=== PATIENT | female | born 1930 | race Asian ===

== ENCOUNTER → 2017-01-25 | Outpatient (CLI) | payer OTHER ==
[~2017-01-25] MED LIST: CALC500T62 PO; CIPR-278 PO; CLOP75 PO; MULT-1238 PO; PITA2TAB2 PO; VALS160T2 PO
== END | disposition home or self-care (01) ==
LOC: RADPV 09:36
PROVIDERS: ATTEND Internal Medicine
DX: K73.9 Chronic hepatitis, unspecified (principal); R60.9 Edema, unspecified; R16.1 Splenomegaly, not elsewhere classified; N28.1 Cyst of kidney, acquired; K76.89 Other specified diseases of liver
CPT/HCPCS: 76700; 93970

== ENCOUNTER 2017-03-11 09:39 | Inpatient (IN) | payer OTHER ==
[~2017-03-11] VITALS: Ht 154.9 cm; Wt 55.5 kg
[2017-03-11] MEDS ORDERED: SODIUM CHLORIDE 0.9% 1,000 ML IV ONE ×2 (10:15→11:30)
[2017-03-11 10:30] LABS: BASOPHILS % (AUTO) 0.5 % (0.0-2.0); HEMATOCRIT 35.7 % (36-46); HEMOGLOBIN 11.2 g/dL (12.0-16.0); LYMPHOCYTES # (AUTO) 1.7 K/uL (1.0-4.8); LYMPHOCYTES % (AUTO) 17.9 % (22.0-44.0); MEAN CORPUSCULAR HEMOGLOBIN 25.2 pg (26.0-34.0); MEAN CORPUSCULAR HGB CONC 31.3 G/dL (31.0-37.0); MEAN CORPUSCULAR VOLUME 80 fL (80-100); NEUTROPHILS # (AUTO) 6.7 K/uL (1.8-7.7); NEUTROPHILS % (AUTO) 68.6 % (40.0-70.0); PLATELET COUNT (AUTO) 158 K/uL (150-450); RED BLOOD CELL COUNT(AUTO) 4.44 MIL/uL (4.00-5.20); RED CELL DISTRIBUTION WIDTH 17.4 % (11.5-14.5); WHITE BLOOD COUNT (AUTO) 9.7 K/uL (4.5-11.0)
[2017-03-11 10:40] LABS: PROTHROMBIN TIME 10.9 SEC (9.4-11.6)
[2017-03-11 10:41] LABS: CALCIUM, TOTAL 8.8 mg/dL (8.8-10.5); CREATININE 1.19 mg/dL (0.60-1.30); POTASSIUM 4.1 mmol/L (3.5-5.1)
[2017-03-11 10:47] LABS: ALBUMIN 3.3 g/dL (3.4-5.0); BILIRUBIN,TOTAL 0.4 mg/dL (0.1-1.0); TOTAL PROTEIN, SERUM 7.5 g/dL (6.4-8.2)
[2017-03-11] MEDS ORDERED: ONDANSETRON HCL 4 MG/2 ML VIAL IVP PRN (11:30)
[2017-03-11] MEDS ORDERED: 0.9% SODIUM CHLORIDE 10 ML SYRINGE IVP PRN (11:30)
[2017-03-11] MEDS ORDERED: ACETAMINOPHEN 325 MG TABLET PO PRN (11:30)
[2017-03-11 11:54] LABS: APPEARANCE,URINE CLEAR (CLEAR); GLUCOSE, URINE (UA) NEGATIVE (NEGATIVE); KETONES,URINE NEGATIVE (NEGATIVE); LEUKOCYTE ESTERASE ,URINE NEGATIVE (NEGATIVE); OCCULT BLOOD,URINE NEGATIVE (NEGATIVE); PROTEIN,URINE NEGATIVE (NEGATIVE)
[2017-03-11 11:55] LABS: ADD UA MICROSCOPIC NO
[2017-03-11 17:30] VITALS: BP 175/103
[2017-03-11 17:46] VITALS: BP 154/89
[2017-03-11] MEDS: ASPIRIN 81 MG CHEWABLE TABLET PO SCH (18:58)
[2017-03-11 19:48] VITALS: BP 151/95
[2017-03-11 20:14] LABS: HEMOGLOBIN A1C 5.5 % (4.5-6.2)
[2017-03-11 20:31] LABS: THYROID STIMULATING HORMONE 2.22 uIU/mL (0.36-3.74)
[2017-03-11 23:58] VITALS: BP 151/69
[2017-03-12 03:25] VITALS: BP 164/87
[2017-03-12 07:42] VITALS: BP 147/95
[2017-03-12] MEDS ORDERED: [UNRECOGNIZED DRUG - OTHER] PO SCH (09:30)
[2017-03-12] MEDS ORDERED: PITAVASTATIN CALCIUM 2 MG PO SCH (09:30)
[2017-03-12 10:07] LABS: VITAMIN B12 LEVEL 1333 pg/mL (211-911)
[2017-03-12] MEDS: CLOPIDOGREL BISULFATE 75 MG TABLET PO SCH (10:09)
[2017-03-12] MEDS: ASPIRIN 81 MG CHEWABLE TABLET PO SCH (10:09)
[2017-03-12] MEDS: VALSARTAN 160 MG TABLET PO SCH (10:10)
[2017-03-12] MEDS: MULTIVITAMINS, THERAPEUTIC TABLET PO SCH (10:10)
[2017-03-12 11:26] VITALS: BP 146/84
[2017-03-12] MEDS: CALCIUM OYSTER SHELL 500 MG TABLET PO SCH ×2 (12:27→20:12)
[2017-03-12 15:49] VITALS: BP 148/86
[2017-03-12 19:36] VITALS: BP 150/67
[2017-03-13 00:18] VITALS: BP 145/74
[2017-03-13 04:44] VITALS: BP 141/63
[2017-03-13 08:00] VITALS: BP 143/76
[2017-03-13] MEDS: VALSARTAN 160 MG TABLET PO SCH (08:10)
[2017-03-13] MEDS: ASPIRIN 81 MG CHEWABLE TABLET PO SCH (08:10)
[2017-03-13] MEDS: CLOPIDOGREL BISULFATE 75 MG TABLET PO SCH (08:11)
[2017-03-13] MEDS: MULTIVITAMINS, THERAPEUTIC TABLET PO SCH (08:11)
[2017-03-13] MEDS: CALCIUM OYSTER SHELL 500 MG TABLET PO SCH ×2 (08:13→22:03)
[2017-03-13 12:00] VITALS: BP 123/61
[2017-03-13 16:03] VITALS: BP 124/67
[2017-03-13 19:49] VITALS: BP 146/71
[2017-03-14 00:14] VITALS: BP 135/68
[2017-03-14 04:30] VITALS: BP 125/52
[2017-03-14 07:14] VITALS: BP 121/89
[2017-03-14] MEDS: MULTIVITAMINS, THERAPEUTIC TABLET PO SCH (08:18)
[2017-03-14] MEDS: CALCIUM OYSTER SHELL 500 MG TABLET PO SCH (08:18)
[2017-03-14] MEDS: ASPIRIN 81 MG CHEWABLE TABLET PO SCH (08:18)
[2017-03-14] MEDS: CLOPIDOGREL BISULFATE 75 MG TABLET PO SCH (08:18)
[2017-03-14] MEDS: VALSARTAN 160 MG TABLET PO SCH (08:18)
[2017-03-14 10:46] VITALS: BP 114/57
[2017-03-14 16:19] VITALS: BP 106/52
== END 2017-03-14 17:55 | disposition home or self-care (01) | DRG 74 ==
LOC: EMS 09:42 → 5S 16:05
PROVIDERS: ADMIT Family Medicine; ATTEND Family Medicine
DX: G90.9 Disorder of the autonomic nervous system, unspecified (principal); J98.11 Atelectasis; R56.9 Unspecified convulsions; J44.9 Chronic obstructive pulmonary disease, unspecified; F03.90 Unspecified dementia, unspecified severity, without behavioral disturbance, psychotic disturbance, mood disturbance, and anxiety; I10 Essential (primary) hypertension; M19.90 Unspecified osteoarthritis, unspecified site; E78.5 Hyperlipidemia, unspecified; I67.2 Cerebral atherosclerosis; Z79.899 Other long term (current) drug therapy; E78.00 Pure hypercholesterolemia, unspecified; Z79.02 Long term (current) use of antithrombotics/antiplatelets; Z79.2 Long term (current) use of antibiotics
CPT/HCPCS: 70450; 70544; 70551; 82607; 82746; 83036; 84443; 92610; 93005; 93306; 93880; 95816; 96360; 96361; 97161; 97165; 99285; J7030